=== PATIENT | male | born 1960 | race Asian ===

== ENCOUNTER 2016-12-27 01:29 | Inpatient (IN) | payer MEDICAID ==
[~2016-12-27] VITALS: Ht 175.3 cm; Wt 76.6 kg
[2016-12-27 02:09] LABS: BASOPHILS % (AUTO) 0.7 % (0.0-2.0); EOSINOPHILS % (AUTO) 1.7 % (1.0-6.0); HEMOGLOBIN 13.4 g/dL (13.5-17.5); LYMPHOCYTES # (AUTO) 2.5 K/uL (1.0-4.8); LYMPHOCYTES % (AUTO) 29.6 % (22.0-44.0); MEAN CORPUSCULAR HEMOGLOBIN 29.9 pg (26.0-34.0); MEAN CORPUSCULAR HGB CONC 32.6 G/dL (31.0-37.0); MEAN CORPUSCULAR VOLUME 92 fL (80-100); MONOCYTES # (AUTO) 0.7 K/uL (0.1-1.0); MONOCYTES % (AUTO) 8.6 % (2.0-9.0); NEUTROPHILS # (AUTO) 4.9 K/uL (1.8-7.7); NEUTROPHILS % (AUTO) 59.4 % (40.0-70.0); PLATELET COUNT (AUTO) 288 K/uL (150-450); RED BLOOD CELL COUNT(AUTO) 4.47 MIL/uL (4.50-5.90); RED CELL DISTRIBUTION WIDTH 14.5 % (11.5-14.5); WHITE BLOOD COUNT (AUTO) 8.3 K/uL (4.5-11.0)
[2016-12-27 02:14] LABS: ANION GAP 10 mmol/L (8-16); CALCIUM, TOTAL 9.1 mg/dL (8.8-10.5); CARBON DIOXIDE 27 mmol/L (22-29); CHLORIDE 103 mmol/L (98-107); CREATININE 0.99 mg/dL (0.60-1.30); GLOMERULAR FILTR. RATE CALC > 60 mL/min (>60); POTASSIUM 3.5 mmol/L (3.5-5.1); SODIUM SERUM 140 mmol/L (136-145); UREA NITROGEN, BLOOD 16 mg/dL (7-18)
[2016-12-27] MEDS ORDERED: BACITRACIN 0.9 GM PACKET OINTMENT TP ONE (02:15)
[2016-12-27 02:19] LABS: ALANINE AMINOTRANSFERASE 35 U/L (12-78); ALBUMIN 3.7 g/dL (3.4-5.0); ASPARTATE AMINOTRANSFERASE 22 U/L (15-37); BILIRUBIN,TOTAL 0.4 mg/dL (0.1-1.0); TOTAL PROTEIN, SERUM 7.7 g/dL (6.4-8.2)
[2016-12-27] MEDS ORDERED: LORazepam 2 MG TABLET PO PRN (03:00)
[2016-12-27] MEDS ORDERED: ZOLPIDEM TARTRATE 10 MG TABLET PO PRN (03:00)
[2016-12-27] MEDS ORDERED: OLANZapine 5 MG RAPDIS TABLET PO PRN (03:00)
[2016-12-27 03:21] LABS: APPEARANCE,URINE CLEAR (CLEAR); GLUCOSE, URINE (UA) NEGATIVE (NEGATIVE); KETONES,URINE NEGATIVE (NEGATIVE); LEUKOCYTE ESTERASE ,URINE NEGATIVE (NEGATIVE); OCCULT BLOOD,URINE TRACE (NEGATIVE); PH,URINE 5.5 (5.0-8.0); PROTEIN,URINE NEGATIVE (NEGATIVE)
[2016-12-27 03:23] LABS: ADD UA MICROSCOPIC YES
[2016-12-27 03:32] LABS: WBC,URINE 0-2 /HPF (0-5)
[2016-12-27 04:54] VITALS: BP 139/88
[2016-12-27] MEDS ORDERED: INFLUENZA VIRUS VACCINE QVS 2016-17 (3YR+)/PF 60 MCG/0.5 ML SYRINGE IM ONE (05:30)
[2016-12-27 08:14] VITALS: BP 106/61
[2016-12-27] MEDS: NICOTINE 21 MG/24 HOUR PATCH TD SCH (09:00)
[2016-12-27] MEDS ORDERED: GuaiFENesin/D-METHORPHAN [SUGAR-FREE] 200-20MG/10 ML SYRUP UDCUP PO PRN (13:30)
[2016-12-27] MEDS ORDERED: TUBERCULIN, PURIFIED PROTEIN DERIVATIVE 5 TU/0.1 ML SYG ID ONE (13:30)
[2016-12-27] MEDS ORDERED: ACETAMINOPHEN 325 MG TABLET PO PRN (13:30)
[2016-12-27] MEDS ORDERED: MAG HYDROX/AL HYDROX/SIMETH ES 30 ML SUSPENSION UDCUP PO PRN (13:30)
[2016-12-27] MEDS ORDERED: MAGNESIUM HYDROXIDE SUSPENSION 30 ML UDCUP PO PRN (13:30)
[2016-12-27] MEDS ORDERED: LOPERAMIDE HCL 2 MG CAPSULE PO PRN (13:30)
[2016-12-27] MEDS ORDERED: HydrOXYzine PAMOATE 50 MG CAPSULE PO PRN (13:30)
[2016-12-27] MEDS ORDERED: PROMETHAZINE HCL 25 MG TABLET PO PRN (13:30)
[2016-12-27 16:37] VITALS: BP 122/76
[2016-12-27] MEDS: THIAMINE HCL 100 MG TABLET PO SCH (16:49)
[2016-12-27] MEDS: OLANZapine 5 MG RAPDIS TABLET PO SCH (21:07)
[2016-12-28 03:42] VITALS: BP 105/66
[2016-12-28 08:00] VITALS: BP 107/63
[2016-12-28] MEDS: MULTIVITAMINS WITH MINERALS, THERAPEUTIC TABLET PO SCH (09:30)
[2016-12-28] MEDS: THIAMINE HCL 100 MG TABLET PO SCH ×2 (09:30→18:35)
[2016-12-28] MEDS: FLUoxetine HCL 20 MG CAPSULE PO SCH (09:30)
[2016-12-28] MEDS: FOLIC ACID 1 MG TABLET PO SCH (09:30)
[2016-12-28] MEDS: NICOTINE 21 MG/24 HOUR PATCH TD SCH (09:33)
[2016-12-28 16:11] VITALS: BP 120/80
[2016-12-28] MEDS: OLANZapine 5 MG RAPDIS TABLET PO SCH (21:53)
[2016-12-29 07:19] VITALS: BP 118/72
[2016-12-29 08:49] VITALS: BP 103/70
[2016-12-29] MEDS: THIAMINE HCL 100 MG TABLET PO SCH (10:08)
[2016-12-29] MEDS: NICOTINE 21 MG/24 HOUR PATCH TD SCH (10:08)
[2016-12-29] MEDS: FOLIC ACID 1 MG TABLET PO SCH (10:08)
[2016-12-29] MEDS: MULTIVITAMINS WITH MINERALS, THERAPEUTIC TABLET PO SCH (10:08)
[2016-12-29] MEDS: FLUoxetine HCL 20 MG CAPSULE PO SCH (10:08)
[2016-12-29] MEDS ORDERED: OLAN5Z PO (13:12)
[2016-12-29] MEDS ORDERED: FLUO-191 PO (13:12)
== END 2016-12-29 17:30 | disposition home or self-care (01) | DRG 754 ==
LOC: EMS 01:31 → B2S 03:00
PROVIDERS: ADMIT Psychiatry & Neurology Psychiatry; ATTEND Psychiatry & Neurology Psychiatry
PROC: 3E0234Z Introduction of Serum, Toxoid and Vaccine into Muscle, Percutaneous Approach (ICD-10-PCS; principal; 2016-12-27)
DX: F32.9 Major depressive disorder, single episode, unspecified (principal); R45.851 Suicidal ideations; Z91.19 Patient's noncompliance with other medical treatment and regimen; F20.0 Paranoid schizophrenia; D64.9 Anemia, unspecified; F17.210 Nicotine dependence, cigarettes, uncomplicated; T22.00XA Burn of unspecified degree of shoulder and upper limb, except wrist and hand, unspecified site, initial encounter; Z23 Encounter for immunization; Z91.5 Personal history of self-harm; Z82.3 Family history of stroke; X08.8XXA Exposure to other specified smoke, fire and flames, initial encounter; Y93.89 Activity, other specified; Y92.89 Other specified places as the place of occurrence of the external cause; Y99.8 Other external cause status
CPT/HCPCS: 90471; 99285; G0480